=== PATIENT | female | born 1945 | race Hispanic/Latino ===

== ENCOUNTER 2017-09-21 00:13 | Emergency (ER) | payer MEDICARE ==
[2017-09-21] MEDS ORDERED: TORADOL ONE (02:27)
[2017-09-21] MEDS ORDERED: ZOFRAN ONE (02:27)
[2017-09-21] MEDS ORDERED: ZOFRAN IM ONE (02:35)
[2017-09-21] MEDS ORDERED: TORADOL IV ONE (02:35)
[2017-09-21] MEDS ORDERED: TORADOL IM ONE (02:38)
[2017-09-21 03:11] LABS: Basophils % (Auto) 0.4 % (0.0-1.8); Eosinophils % (Auto) 0.1 % (0.0-4.3); Hematocrit 43.4 % (30.3-42.9); Hemoglobin 14.8 gm/dl (10.1-14.3); Mean Corpuscular HGB Conc 34 % (30-34); Mean Corpuscular Hemoglobin 30 pg (28-32); Mean Corpuscular Volume 87 fl (79-97); Platelet Count 308 K/mm3 (140-440); Red Cell Distribution Width 14.2 % (13.2-15.2); White Blood Count 17.5 K/mm3 (4.5-11.0)
[2017-09-21 03:22] LABS: Alanine Aminotransferase 56 units/L (7-56); Albumin 4.7 g/dL (3.9-5); Albumin/Globulin Ratio 1.6 %; Alkaline Phosphatase 149 units/L (35-129); Anion Gap 22 mmol/L; BUN/Creatinine Ratio 17; Blood Urea Nitrogen 15 mg/dL (7-17); Calcium 10.8 mg/dL (8.4-10.2); Carbon Dioxide 23 mmol/L (22-30); Glucose 163 mg/dL (65-100); Lipase 24 units/L (13-60); Potassium 3.9 mmol/L (3.6-5.0); Sodium 140 mmol/L (137-145); Total Protein 7.6 g/dL (6.3-8.2)
[2017-09-21 03:25] LABS: Bilirubin,Urine NEG (Negative); Blood,Urine LG (Negative); Ketones,Urine NEG (Negative); Leukocyte Esterase,Urine LG (Negative); Mucus,Urine FEW /HPF; Nitrite,Urine NEG (Negative); Protein,Urine <15 mg/dL mg/dL (Negative); Urobilinogen,Urine < 2.0 mg/dL (<2.0)
[2017-09-21 03:30] LABS: RBC,Urine > 182.0 /HPF (0.0-6.0)
[2017-09-21] MEDS ORDERED: DILAUDID IV ONE (05:14)
[2017-09-21] MEDS ORDERED: NACL 0.9% 1000 ML 1,000 ML IV ONE (05:15)
--- NOTE | 2017-09-21 05:17 | Cat Scan Report ---
FINAL REPORT EXAM: CT ABDOMEN PELVIS WO CON HISTORY: right flank pain TECHNIQUE: Routine axial imaging was obtained of the abdomen and pelvis without oral or IV contrast. Sagittal and coronal reconstructions were reviewed. FINDINGS: The lung bases are clear. Pleural fluid is not seen. The liver, gallbladder, pancreas, and spleen appear normal. The adrenal glands not enlarged. The left kidney reveals multiple peripelvic cysts. There are no stones or hydronephrosis on the left side. On the right side there is severe hydronephrotic changes with perinephric stranding. This is secondary to a stone in the distal right ureter measuring 4.7 millimeters in axial dimension and measures 6.3 millimeters in cephalocaudal dimension. The bowel loops are normal in caliber and course. The appendix is not seen. In the pelvis the uterus and bladder appear normal. There is streak artifact in the pelvis from the patient's left hip prosthesis. There are a few uncomplicated sigmoid diverticula. 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 IMPRESSION: Severe right-sided hydronephrosis secondary to a stone in the distal right ureter measuring 4.7 millimeters in axial dimension and 6.3 millimeters in cephalocaudal dimension. Multiple benign peripelvic cysts in the left kidney. Uncomplicated sigmoid diverticulosis.
[2017-09-21] MEDS ORDERED: LEVAQUIN PO ONE (07:49)
--- NOTE | 2017-09-21 07:50 | Emergency Department Report ---
HPI - General Chief Complaint: Abdominal Pain Time Seen by Provider: 09/21/17 07:35 - HPI HPI: Isbell 28 The patient is a 71-year-old female presenting with a chief complaint of right flank pain. She states her symptoms began one week ago with sharp pain in the right flank which eventually resolved. The patient states the pain has been intermittent and sharp in nature. Patient states the pain returned last night that she noticed hematuria which prompted her to come to the emergency department. Patient was uncertain if she's had dysuria. Patient denies any history of fever patient was given medication prior to my evaluation and currently states her pain is a 0/10 Location: Right flank Duration: Intermittent times one week Quality: Sharp Severity: Currently 0/10 Modifying factors: [see above] Context: [see above] Mode of transportation: [not driving] ED Past Medical Hx - Past Medical History Previous Medical History?: Yes Hx Hypertension: Yes - Surgical History Past Surgical History?: Yes Additional Surgical History: Hip surgery - Family History Family history: no significant - Social History Smoking Status: Never Smoker Substance Use Type: None - Medications Home Medications: Home Medications Medication Instructions Recorded Confirmed Last Taken Type Ketorolac [Toradol] 10 mg PO Q6H PRN #16 tablet 09/21/17 Unknown Rx Levofloxacin [Levaquin TAB] 500 mg PO QDAY #7 tablet 09/21/17 Unknown Rx Promethazine [Phenergan TAB] 25 mg PO Q6HR PRN #20 tab 09/21/17 Unknown Rx Tamsulosin [Flomax] 0.4 mg PO QDAY #5 cap 09/21/17 Unknown Rx oxyCODONE /ACETAMINOPHEN [Percocet 1 - 2 tab PO Q6HR PRN #20 tablet 09/21/17 Unknown Rx 5/325] ED Review of Systems ROS: Stated complaint: ABD PAIN Other details as noted in HPI Constitutional: denies: fever Gastrointestinal: abdominal pain Genitourinary: hematuria Musculoskeletal: back pain Physical Exam - Physical Exam Vital Signs: Vital Signs 09/21/17 09/21/17 09/21/17 00:26 02:18 02:40 Temperature 98.3 F 98.3 F Pulse Rate 69 68 Respiratory 18 18 20 Rate Blood Pressure 194/92 194/92 O2 Sat by Pulse 98 100 Oximetry 09/21/17 09/21/17 09/21/17 04:38 05:25 05:27 Temperature 98.4 F Pulse Rate 70 Respiratory 14 18 18 Rate Blood Pressure 175/76 O2 Sat by Pulse 97 99 Oximetry Physical Exam: GENERAL: The patient is well-developed well-nourished female lying on stretcher not appearing to be in acute distress. [] HEENT: Normocephalic. Atraumatic. Extraocular motions are intact. Patient has moist mucous membranes. NECK: Supple. Trachea midline CHEST/LUNGS: Clear to auscultation. There is no respiratory distress noted. HEART/CARDIOVASCULAR: Regular. There is no tachycardia. There is no gallop rub or murmur. ABDOMEN: Abdomen is soft, with mild discomfort to palpation in the suprapubic and right lower quadrant. Patient has normal bowel sounds. There is no abdominal distention. SKIN: There is no rash. There is no diaphoresis. NEURO: The patient is awake, alert, and oriented. The patient is cooperative. The patient has normal speech MUSCULOSKELETAL: There is right CVA tenderness. There is no evidence of acute injury. ED Course Vital Signs 09/21/17 09/21/17 09/21/17 00:26 02:18 02:40 Temperature 98.3 F 98.3 F Pulse Rate 69 68 Respiratory 18 18 20 Rate Blood Pressure 194/92 194/92 O2 Sat by Pulse 98 100 Oximetry 09/21/17 09/21/17 09/21/17 04:38 05:25 05:27 Temperature 98.4 F Pulse Rate 70 Respiratory 14 18 18 Rate Blood Pressure 175/76 O2 Sat by Pulse 97 99 Oximetry ED Medical Decision Making - Lab Data Result diagrams: 09/21/17 02:55 09/21/17 02:55 Laboratory Tests 09/21/17 09/21/17 09/21/17 02:45 02:55 02:55 WBC 17.5 H RBC 5.00 Hgb 14.8 H Hct 43.4 H MCV 87 MCH 30 MCHC 34 RDW 14.2 Plt Count 308 Lymph % (Auto) 8.9 L [place] % (Auto) 4.0 Eos % (Auto) 0.1 Baso % (Auto) 0.4 Lymph # 1.6 [place] # 0.7 Eos # 0.0 Baso # 0.1 Seg Neutrophils % 86.6 H Seg Neutrophils # 15.2 H Sodium 140 Potassium 3.9 Chloride 99.0 Carbon Dioxide 23 Anion Gap 22 BUN 15 Creatinine 0.9 Estimated GFR > 60 BUN/Creatinine Ratio 17 Glucose 163 H Calcium 10.8 H Total Bilirubin 0.60 AST 26 ALT 56 Alkaline Phosphatase 149 H Total Protein 7.6 Albumin 4.7 Albumin/Globulin Ratio 1.6 Lipase 24 Urine Color Straw Urine Turbidity Clear Urine pH 8.0 H Ur Specific [place] 1.010 Urine Protein <15 mg/dl Urine Glucose (UA) Neg Urine Ketones Neg Urine Blood Lg Urine Nitrite Neg Urine Bilirubin Neg Urine Urobilinogen < 2.0 Ur Leukocyte Esterase Lg Urine WBC (Auto) 10.0 H Urine RBC (Auto) > 182.0 Urine Mucus Few - Radiology Data Radiology results: report reviewed (CT abdomen and pelvis), image reviewed (CT abdomen and pelvis) FINAL REPORT EXAM: CT ABDOMEN PELVIS WO CON HISTORY: right flank pain TECHNIQUE: Routine axial imaging was obtained of the abdomen and pelvis without oral or IV contrast. Sagittal and coronal reconstructions were reviewed. FINDINGS: The lung bases are clear. Pleural fluid is not seen. The liver, gallbladder, pancreas, and spleen appear normal. The adrenal glands not enlarged. The left kidney reveals multiple peripelvic cysts. There are no stones or hydronephrosis on the left side. On the right side there is severe hydronephrotic changes with perinephric stranding. This is secondary to a stone in the distal right ureter measuring 4.7 millimeters in axial dimension and measures 6.3 millimeters in cephalocaudal dimension. The bowel loops are normal in caliber and course. The appendix is not seen. In the pelvis the uterus and bladder appear normal. There is streak artifact in the pelvis from the patient's left hip prosthesis. There are a few uncomplicated sigmoid diverticula. 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 IMPRESSION: Severe right-sided hydronephrosis secondary to a stone in the distal right ureter measuring 4.7 millimeters in axial dimension and 6.3 millimeters in cephalocaudal dimension. Multiple benign peripelvic cysts in the left kidney. Uncomplicated sigmoid diverticulosis. Transcribed By: RB Dictated By: LICHA VERDIN MD Electronically Authenticated By: LICHA VERDIN MD Signed Date/Time: 09/21/17113 DD/ 3 TD/TT: 09/21/17113 - Differential Diagnosis renal colic, UTI, pyelonephritis Critical care attestation.: If time is entered above; I have spent that time in minutes in the direct care of this critically ill patient, excluding procedure time. ED Disposition Clinical Impression: Renal colic on right side, Acute flank pain Disposition: TO HOME OR SELFCARE Is pt being admited?: No Does the pt Need Aspirin: No Condition: Stable Instructions: Abdominal Pain (ED), Renal Colic (ED) Additional Instructions: Return to the emergency department immediately should you develop worsening symptoms, fever, inability to tolerate food or liquid or any other concerns. Prescriptions: Ketorolac [Toradol] 10 mg PO Q6H PRN #16 tablet PRN Reason: Pain Levofloxacin [Levaquin TAB] 500 mg PO QDAY #7 tablet oxyCODONE /ACETAMINOPHEN [Percocet 5/325] 1 - 2 tab PO Q6HR PRN #20 tablet PRN Reason: Pain Promethazine [Phenergan TAB] 25 mg PO Q6HR PRN #20 tab PRN Reason: Nausea Tamsulosin [Flomax] 0.4 mg PO QDAY #5 cap Referrals: KELSEA FERNANDEZ MD [Staff Physician] - [facility] (Dr Fernandez is a urologist. Please follow-up with her for further evaluation) Time of Disposition: 07:54
[2017-09-21 08:12] VITALS: BP 166/85
--- NOTE | 2017-09-23 11:27 | Cat Scan Report ---
FINAL REPORT EXAM: CT ABDOMEN PELVIS WO CON HISTORY: renal colic worsening pain ? hydronephrosis TECHNIQUE: Routine axial imaging was obtained of the abdomen and pelvis without oral or IV contrast. Sagittal and coronal reconstructions were reviewed. Comparison is made to the previous CT scan of 09/21/2017 FINDINGS: The lung bases reveal mild atelectatic changes in both lower lobes. Pleural fluid is not seen. The liver, gallbladder, pancreas, and spleen are unremarkable. The adrenal glands appear normal. There are stable peripelvic cysts in the left kidney. There is no evidence of hydronephrosis in left kidney. There is stable moderate to severe right-sided hydronephrosis secondary to a stone in the distal right ureter measuring 4.7 millimeters in axial dimension and measures 6.3 millimeters in cephalocaudal dimension. It is unchanged in position. The degree of hydronephrosis also is unchanged. The bowel loops are normal in caliber and course. In the pelvis the uterus and bladder appear normal. Free fluid is not seen. There are multiple uncomplicated sigmoid diverticula. 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 IMPRESSION: Stable moderate to severe right-sided hydronephrosis with the position of the stone in the distal right ureter unchanged. Multiple stable peripelvic cysts in the left kidney. Uncomplicated sigmoid diverticulosis.
== END 2017-09-21 08:12 | disposition home or self-care (01) ==
LOC: ED 00:13
DX: N23 Unspecified renal colic (principal); I10 Essential (primary) hypertension
CPT/HCPCS: 36415; 74176; 80053; 81001; 83690; 85025; 87086; 96361; 96372; 96374; 99284; J1170; J1885; J2405; J7030